=== PATIENT | female | born 1945 | race Caucasian/White ===

== ENCOUNTER → 2016-05-15 | Outpatient (CLI) | payer MEDICARE, BC ==
[~2016-05-15] MED LIST: LISINOPRIL10 MG PO; MIRAPEX 0.125MG PO; TRAVATAN Z 5 ML5 ML OD; VANCO 1 GR1 GM/250 M IV; XALATAN EYE DROPS OU
== END ==
LOC: MAMMO 12:54
DX: Z12.31 Encounter for screening mammogram for malignant neoplasm of breast (principal); Z00.00 Encounter for general adult medical examination without abnormal findings
CPT/HCPCS: G0202

== ENCOUNTER 2016-06-28 13:15 | Outpatient (RCR) | payer MEDICARE, BC ==
[~2016-06-28 13:15] MED LIST changes: -MIRAPEX 0.125MG PO; -VANCO 1 GR1 GM/250 M IV; -XALATAN EYE DROPS OU
[2016-06-28 13:54] VITALS: BP 130/74
[2016-06-28] MEDS ORDERED: MIRAPEX 0.125MG PO (13:57)
[2016-06-28 16:50] VITALS: BP 144/70
--- NOTE | 2016-06-28 16:50 | NUR ---
Pt's right arm noted with redness from shoulder to wrist. Marked areas of edges that redness with normal skin tones near shoulder. Most of upper and lower arm noted with redness. Measured mid upper arm at 36 cm and marked line for reassessment. Measured at mid forearm at 31 cm and marked line for reassessment.
[2016-06-28 21:09] VITALS: BP 138/71
[2016-06-28] MEDS ORDERED: VANCO 1 GR1 GM/250 M IV (21:22)
--- NOTE | 2016-06-28 21:27 | NUR ---
PT AMBULATED TO ROOM 101. LOWER RT ARM CIRCUMFERENCE IS 32.5 CM AT JUVENCIO AND UPPER ARM CIRCUMFERENCE IS 37 CM AT JUVENCIO. PT STATES SHE BELIEVES THE LOWER PART IF THE ARM IS LESS RED BUT THE UPPER ARM IS THE SAME IT WAS EARLIER TODAY. REDNESS EDGES REMAIN AT THE MARKED OUTLINE.
[2016-06-28 22:17] VITALS: BP 122/61
[2016-06-29 06:06] VITALS: BP 132/62
[2016-06-29 07:33] VITALS: BP 122/71
[2016-06-29 18:20] VITALS: BP 123/73
--- NOTE | 2016-06-29 18:50 | NUR ---
Lower right arm circumference measures 30.5 cm at saranya and upper arm circumference measures 37 cm at saranya.
[2016-06-29 19:30] VITALS: BP 115/70
[2016-06-30 07:05] VITALS: BP 129/74
--- NOTE | 2016-06-30 08:00 | NUR ---
UPPER RT ARM CIRCUMFERENCE 37.4CM. RT FOREARM CIRCUMFERENCE 31.5CM.
[2016-06-30 08:34] VITALS: BP 130/87
[2016-06-30 19:00] VITALS: BP 136/78
--- NOTE | 2016-06-30 20:30 | NUR ---
Lower right arm circumference measures 30.5 cm at saranya and upper arm circumference measures 36.8 cm at saranya.
[2016-06-30 20:48] VITALS: BP 140/83
[2016-07-01 07:33] VITALS: BP 118/78
[2016-07-01 09:26] VITALS: BP 131/83
--- NOTE | 2016-07-01 09:27 | NUR ---
lower arem measures 30.2, upper 36.5
[2016-07-01 19:05] VITALS: BP 132/73
[2016-07-01 20:52] VITALS: BP 149/85
[2016-07-02 07:29] VITALS: BP 134/72
[2016-07-02 09:03] VITALS: BP 147/83
[2016-07-02 19:28] VITALS: BP 146/90
[2016-07-02 19:55] VITALS: BP 149/89
--- NOTE | 2016-07-02 19:55 | NUR ---
Patient alert and oriented. Sitting up in the recliner. INT to left ac flushes without difficulty. Area surrounding IV insertion site is firm. No redness or drainage noted. Patient reports that the entire area is "sore." Discussed with patient the benefits and risks of proceeding with the IV antibiotic infusion. Patient states that she would like to receive tonights dose of the IV antibiotic, then d/c the INT tonight. IV antibiotic started per patient request. Patient denies pain or burning at side. Remained at the bedside while infusion started. After approximately 17ml of IV vancomycin was infused, patient jumped, became wide eyed, and stopped speaking mid sentence, then states "I think maybe we better stop this." Infusion was stopped immediately. Patient reports an "odd feeling" throughout her body. Unable to describe "odd feeling" in detail. Asked patient if she was having pain or burning at IV site, patient states "maybe a little bit." Patient states "maybe it's ok, maybe I'm just having anxiety." No redness or drainage noted at IV insertion site. Assessment of IV site is unchanged. INT to left ac discontinued. Catheter tip intact. Patient states that she feels much better with the IV out. Message left on the phone of Vimal Tiwari APRN per orders. Patient ambulatory out of facility to [facility] without incident.
[2016-07-15] MEDS ORDERED: XALATAN EYE DROPS OU (05:15)
== END 2016-07-02 21:00 | disposition home or self-care (01) ==
LOC: AMSURD 13:15 → EDSTATUS 19:57 → AMSURD 07-02 21:00
DX: L03.113 Cellulitis of right upper limb (principal)
CPT/HCPCS: J3370; J7030; J7050

== ENCOUNTER → 2016-06-28 | Outpatient (CLI) | payer MEDICARE, BC | LOC: LAB 11:35 | DX: L03.113 Cellulitis of right upper limb (principal) ==

== ENCOUNTER → 2016-06-29 | Outpatient (CLI) | payer MEDICARE, BC ==
[~2016-06-29] MED LIST changes: +MIRAPEX 0.125MG PO; +VANCO 1 GR1 GM/250 M IV; +XALATAN EYE DROPS OU
== END ==
LOC: LAB 06:03
DX: L03.111 Cellulitis of right axilla (principal)

== ENCOUNTER → 2016-07-01 | Outpatient (CLI) | payer MEDICARE, BC | LOC: LAB 07:05 | DX: L03.113 Cellulitis of right upper limb (principal) ==

== ENCOUNTER → 2016-07-02 | Outpatient (CLI) | payer MEDICARE, BC | LOC: LAB 07:08 | DX: L03.113 Cellulitis of right upper limb (principal); I89.0 Lymphedema, not elsewhere classified ==

== ENCOUNTER 2016-07-15 05:45 | Emergency (ER) | payer MEDICARE, BC | END 2016-07-15 07:31 | disposition home or self-care (01) | LOC: ED 05:45 | DX: I89.0 Lymphedema, not elsewhere classified (principal); R21 Rash and other nonspecific skin eruption ==

== ENCOUNTER → 2016-07-17 | Outpatient (CLI) | payer MEDICARE, BC | LOC: LAB 07:52 | DX: I89.0 Lymphedema, not elsewhere classified (principal) ==

== ENCOUNTER → 2016-08-02 | Outpatient (CLI) | payer MEDICARE, BC | LOC: CARDREHAB 09:53 | DX: R68.89 Other general symptoms and signs (principal); R06.02 Shortness of breath; I10 Essential (primary) hypertension | CPT/HCPCS: A9500 ==

== ENCOUNTER → 2016-08-26 | Outpatient (CLI) | payer MEDICARE, BC ==
[2016-07-15 05:16] VITALS: BP 140/88
== END ==
LOC: LAB 13:35
DX: M79.1 Myalgia (principal); R53.81 Other malaise; R06.02 Shortness of breath

== ENCOUNTER → 2017-03-14 | Outpatient (CLI) | payer MEDICARE, BC ==
[2016-07-15 05:16] VITALS: BP 140/88
[2017-03-14 08:35] LABS: EOS # 0.2 (0.04-0.40); EOS % 3.3 % (1.0-5.0); HEMATOCRIT 43.6 % (37.0-47.0); HEMOGLOBIN 14.3 g/dL (12.5-16.0); LYMPH# 1.3 (1.50-4.00); MEAN CELL VOLUME 93 fl (78-100); MEAN CORPUSCULAR HEMOGLOBIN 31 pg (27-31); MEAN CORPUSCULAR HGB CONC 33 g/dL (33-37); MEAN PLATELET VOLUME 9.4 fl (7.4-10.4); MONO # 0.8 (0.20-0.80); NEU # 4.3 (1.40-6.50); PLATELET COUNT 268 K/mm3 (130-400); RED BLOOD COUNT 4.68 M/mm3 (4.10-5.30); RED CELL DISTRIBUTION WIDTH 12.7 % (11.5-14.5); WHITE BLOOD COUNT 6.7 K/mm3 (4.8-10.8)
[2017-03-14 08:48] LABS: ALBUMIN 4.2 g/dL (3.5-5.0); BUN/CREATININE RATIO 33.9 (6.0-26.0); CALCIUM 9.3 mg/dL (8.4-10.2); POTASSIUM 3.7 mmol/L (3.6-5.0); TOTAL BILIRUBIN 0.9 mg/dL (0.2-1.3); TOTAL PROTEIN 7.1 g/dL (6.3-8.2)
[2017-03-14 09:36] LABS: ERYTHROCYTE SEDIMENTATION RATE 8 mm/hr (0-30)
[2017-03-14 12:03] LABS: URINE APPEARANCE CLOUDY; URINE COLOR YELLOW; URINE PROTEIN(semi-quant) TRACE mg/dL (NEGATIVE)
[2017-03-14 12:04] LABS: URINE BILIRUBIN NEGATIVE (NEGATIVE); URINE BLOOD NEGATIVE (NEGATIVE); URINE GLUCOSE NEGATIVE (NEGATIVE); URINE KETONE NEGATIVE (NEGATIVE); URINE LEUKOCYTE ESTERASE TRACE (NEGATIVE); URINE NITRATE NEGATIVE (NEGATIVE); URINE UROBILINOGEN NORMAL (NORMAL); URINE WBC >50 /hpf (0-3)
[2017-03-15 07:52] LABS: C-REACTIVE PROTEIN XXX
== END ==
LOC: LAB 08:16
PROVIDERS: Nurse Practitioner Family
DX: R52 Pain, unspecified (principal); I10 Essential (primary) hypertension; R10.9 Unspecified abdominal pain; R53.81 Other malaise

== ENCOUNTER → 2017-03-17 | Outpatient (CLI) | payer MEDICARE, BC ==
[2016-07-15 05:16] VITALS: BP 140/88
== END ==
LOC: RAD 09:14
DX: R10.9 Unspecified abdominal pain (principal); R53.81 Other malaise; K80.20 Calculus of gallbladder without cholecystitis without obstruction; N64.89 Other specified disorders of breast; Z85.3 Personal history of malignant neoplasm of breast
CPT/HCPCS: Q9967

== ENCOUNTER → 2017-06-02 | Outpatient (CLI) | payer MEDICARE, BC ==
[2016-07-15 05:16] VITALS: BP 140/88
== END ==
LOC: LAB 10:21
DX: E03.4 Atrophy of thyroid (acquired) (principal)

== ENCOUNTER → 2017-06-03 | Outpatient (CLI) | payer MEDICARE, BC ==
[2016-07-15 05:16] VITALS: BP 140/88
== END ==
LOC: MAMMO 11:18
DX: Z12.31 Encounter for screening mammogram for malignant neoplasm of breast (principal); N63.10 Unspecified lump in the right breast, unspecified quadrant

== ENCOUNTER → 2017-06-09 | Outpatient (CLI) | payer MEDICARE, BC ==
[2016-07-15 05:16] VITALS: BP 140/88
== END ==
LOC: MAMMO 07:05
DX: N63.14 Unspecified lump in the right breast, lower inner quadrant (principal); Z85.3 Personal history of malignant neoplasm of breast; Z92.3 Personal history of irradiation

== ENCOUNTER 2017-06-22 06:28 | Emergency (ER) | payer MEDICARE, BC ==
[~2017-06-22] VITALS: Ht 157.5 cm; Wt 68.2 kg
[2017-06-22] MEDS ORDERED: ZESTORETIC 10-1 EACH PO (06:55)
[2017-06-22] MEDS ORDERED: LEVO-T100 MCG PO (06:56)
[2017-06-22 08:29] LABS: EOS # 0.2 (0.04-0.40); EOS % 2.1 % (1.0-5.0); HEMATOCRIT 44.8 % (37.0-47.0); HEMOGLOBIN 14.5 g/dL (12.5-16.0); LYMPH# 1.3 (1.50-4.00); MEAN CELL VOLUME 94 fl (78-100); MEAN CORPUSCULAR HEMOGLOBIN 30 pg (27-31); MEAN CORPUSCULAR HGB CONC 32 g/dL (33-37); MEAN PLATELET VOLUME 9.6 fl (7.4-10.4); MONO # 0.7 (0.20-0.80); NEU # 4.8 (1.40-6.50); PLATELET COUNT 279 K/mm3 (130-400); RED BLOOD COUNT 4.77 M/mm3 (4.10-5.30); RED CELL DISTRIBUTION WIDTH 12.9 % (11.5-14.5)
[2017-06-22 09:17] VITALS: BP 130/85
[2017-06-22 09:26] LABS: ERYTHROCYTE SEDIMENTATION RATE 5 mm/hr (0-30)
== END 2017-06-22 09:14 | disposition home or self-care (01) ==
LOC: ED 06:28
PROVIDERS: Family Medicine
DX: I89.0 Lymphedema, not elsewhere classified (principal); I10 Essential (primary) hypertension; C50.911 Malignant neoplasm of unspecified site of right female breast

== ENCOUNTER → 2017-06-26 | Outpatient (CLI) | payer MEDICARE, BC ==
[2017-06-22 09:17] VITALS: BP 130/85
[~2017-06-26] MED LIST changes: +LEVO-T100 MCG PO; +ZESTORETIC 10-1 EACH PO
== END ==
LOC: RAD 14:35
DX: I99.9 Unspecified disorder of circulatory system (principal); Z53.8 Procedure and treatment not carried out for other reasons

== ENCOUNTER → 2017-09-17 | Outpatient (CLI) | payer MEDICARE, BC ==
[2017-09-17 13:29] LABS: HEMATOCRIT 39.7 % (37.0-47.0); HEMOGLOBIN 13.2 g/dL (12.5-16.0); MEAN CELL VOLUME 93 fl (78-100); MEAN CORPUSCULAR HEMOGLOBIN 31 pg (27-31); MEAN CORPUSCULAR HGB CONC 33 g/dL (33-37); MEAN PLATELET VOLUME 10.3 fl (7.4-10.4); PLATELET COUNT 258 K/mm3 (130-400); RED BLOOD COUNT 4.28 M/mm3 (4.10-5.30); RED CELL DISTRIBUTION WIDTH 13.1 % (11.5-14.5)
[2017-09-17 13:43] LABS: ALBUMIN 3.9 g/dL (3.5-5.0); BUN/CREATININE RATIO 44.9 (6.0-26.0); CALCIUM 8.5 mg/dL (8.4-10.2); POTASSIUM 3.8 mmol/L (3.6-5.0); TOTAL BILIRUBIN 0.6 mg/dL (0.2-1.3); TOTAL PROTEIN 6.8 g/dL (6.3-8.2)
[2017-09-17 14:23] LABS: WHITE BLOOD COUNT 62.9 K/mm3 (4.8-10.8)
[2017-09-17 14:24] LABS: LYMPHOCYTE 9 % (20-51); MONOCYTE 2 % (3-10); NEUTROPHILS 89 % (42-75)
== END ==
LOC: LAB 13:13
PROVIDERS: Internal Medicine
DX: C50.919 Malignant neoplasm of unspecified site of unspecified female breast (principal)

== ENCOUNTER → 2017-09-24 | Outpatient (CLI) | payer MEDICARE, BC ==
[2017-09-24 14:44] LABS: HEMATOCRIT 37.5 % (37.0-47.0); HEMOGLOBIN 12.2 g/dL (12.5-16.0); MEAN CELL VOLUME 93 fl (78-100); MEAN CORPUSCULAR HEMOGLOBIN 30 pg (27-31); MEAN CORPUSCULAR HGB CONC 33 g/dL (33-37); MEAN PLATELET VOLUME 10.1 fl (7.4-10.4); PLATELET COUNT 222 K/mm3 (130-400); RED BLOOD COUNT 4.05 M/mm3 (4.10-5.30); RED CELL DISTRIBUTION WIDTH 13.3 % (11.5-14.5)
[2017-09-24 15:18] LABS: ALBUMIN 3.4 g/dL (3.5-5.0); BUN/CREATININE RATIO 21.8 (6.0-26.0); CALCIUM 8.8 mg/dL (8.4-10.2); TOTAL BILIRUBIN 0.2 mg/dL (0.2-1.3); TOTAL PROTEIN 6.3 g/dL (6.3-8.2)
[2017-09-24 15:30] LABS: WHITE BLOOD COUNT 55.2 K/mm3 (4.8-10.8)
[2017-09-24 15:33] LABS: LYMPHOCYTE 13 % (20-51); MONOCYTE 8 % (3-10); NEUTROPHILS 78 % (42-75)
== END ==
LOC: LAB 14:04
PROVIDERS: Internal Medicine
DX: C50.919 Malignant neoplasm of unspecified site of unspecified female breast (principal)

== ENCOUNTER → 2017-10-01 | Outpatient (CLI) | payer MEDICARE, BC ==
[2017-10-01 13:48] LABS: HEMATOCRIT 35.2 % (37.0-47.0); HEMOGLOBIN 11.3 g/dL (12.5-16.0); MEAN CELL VOLUME 95 fl (78-100); MEAN CORPUSCULAR HEMOGLOBIN 31 pg (27-31); MEAN CORPUSCULAR HGB CONC 32 g/dL (33-37); MEAN PLATELET VOLUME 9.3 fl (7.4-10.4); PLATELET COUNT 246 K/mm3 (130-400); RED CELL DISTRIBUTION WIDTH 13.9 % (11.5-14.5); WHITE BLOOD COUNT 19.5 K/mm3 (4.8-10.8)
[2017-10-01 13:58] LABS: LYMPHOCYTE 15 % (20-51); MONOCYTE 8 % (3-10); NEUTROPHILS 75 % (42-75)
[2017-10-01 14:00] LABS: ALBUMIN 3.6 g/dL (3.5-5.0); BUN/CREATININE RATIO 25.5 (6.0-26.0); CALCIUM 8.8 mg/dL (8.4-10.2); POTASSIUM 4.5 mmol/L (3.6-5.0); TOTAL BILIRUBIN 0.2 mg/dL (0.2-1.3); TOTAL PROTEIN 6.3 g/dL (6.3-8.2)
== END ==
LOC: LAB 13:33
PROVIDERS: Internal Medicine
DX: C50.919 Malignant neoplasm of unspecified site of unspecified female breast (principal)

== ENCOUNTER → 2017-10-15 | Outpatient (CLI) | payer MEDICARE, BC ==
[2017-10-15 11:55] LABS: MEAN CELL VOLUME 97 fl (78-100); MEAN CORPUSCULAR HEMOGLOBIN 31 pg (27-31); MEAN CORPUSCULAR HGB CONC 32 g/dL (33-37); MEAN PLATELET VOLUME 9.9 fl (7.4-10.4); PLATELET COUNT 305 K/mm3 (130-400); RED BLOOD COUNT 3.52 M/mm3 (4.10-5.30); RED CELL DISTRIBUTION WIDTH 15.7 % (11.5-14.5)
[2017-10-15 12:21] LABS: ALBUMIN 3.7 g/dL (3.5-5.0); BUN/CREATININE RATIO 17.3 (6.0-26.0); CALCIUM 8.8 mg/dL (8.4-10.2); POTASSIUM 3.9 mmol/L (3.6-5.0); TOTAL BILIRUBIN 0.2 mg/dL (0.2-1.3); TOTAL PROTEIN 6.4 g/dL (6.3-8.2)
[2017-10-15 12:57] LABS: LYMPHOCYTE 20 % (20-51); MONOCYTE 9 % (3-10); NEUTROPHILS 70 % (42-75)
== END ==
LOC: LAB 11:28
PROVIDERS: Internal Medicine
DX: C50.919 Malignant neoplasm of unspecified site of unspecified female breast (principal)

== ENCOUNTER → 2017-10-22 | Outpatient (CLI) | payer MEDICARE, BC ==
[2017-10-22 11:26] LABS: HEMATOCRIT 33.7 % (37.0-47.0); HEMOGLOBIN 10.6 g/dL (12.5-16.0); MEAN CELL VOLUME 98 fl (78-100); MEAN CORPUSCULAR HEMOGLOBIN 31 pg (27-31); MEAN CORPUSCULAR HGB CONC 32 g/dL (33-37); PLATELET COUNT 212 K/mm3 (130-400); RED BLOOD COUNT 3.44 M/mm3 (4.10-5.30); RED CELL DISTRIBUTION WIDTH 16.2 % (11.5-14.5); WHITE BLOOD COUNT 13.2 K/mm3 (4.8-10.8)
[2017-10-22 11:32] LABS: ALBUMIN 3.5 g/dL (3.5-5.0); BUN/CREATININE RATIO 25.2 (6.0-26.0); CALCIUM 8.3 mg/dL (8.4-10.2); POTASSIUM 4.1 mmol/L (3.6-5.0); TOTAL BILIRUBIN 0.3 mg/dL (0.2-1.3)
[2017-10-22 11:48] LABS: BAND 1 % (0-10); LYMPHOCYTE 13 % (20-51); MONOCYTE 11 % (3-10); NEUTROPHILS 74 % (42-75)
== END ==
LOC: LAB 11:05
PROVIDERS: Internal Medicine
DX: C50.919 Malignant neoplasm of unspecified site of unspecified female breast (principal)

== ENCOUNTER → 2017-11-05 | Outpatient (CLI) | payer MEDICARE, BC ==
[2017-11-05 14:59] LABS: HEMATOCRIT 30.8 % (37.0-47.0); HEMOGLOBIN 9.7 g/dL (12.5-16.0); MEAN CELL VOLUME 100 fl (78-100); MEAN CORPUSCULAR HEMOGLOBIN 32 pg (27-31); MEAN CORPUSCULAR HGB CONC 32 g/dL (33-37); PLATELET COUNT 262 K/mm3 (130-400); RED BLOOD COUNT 3.08 M/mm3 (4.10-5.30); RED CELL DISTRIBUTION WIDTH 17.2 % (11.5-14.5)
[2017-11-05 15:00] LABS: ALBUMIN 3.3 g/dL (3.5-5.0); BUN/CREATININE RATIO 19.2 (6.0-26.0); CALCIUM 8.3 mg/dL (8.4-10.2); POTASSIUM 3.7 mmol/L (3.6-5.0); TOTAL BILIRUBIN 0.2 mg/dL (0.2-1.3)
[2017-11-05 15:51] LABS: WHITE BLOOD COUNT 38.3 K/mm3 (4.8-10.8)
[2017-11-05 15:57] LABS: LYMPHOCYTE 14 % (20-51); MONOCYTE 9 % (3-10); NEUTROPHILS 76 % (42-75)
== END ==
LOC: LAB 14:20
PROVIDERS: Internal Medicine
DX: C50.919 Malignant neoplasm of unspecified site of unspecified female breast (principal)

== ENCOUNTER → 2017-11-12 | Outpatient (CLI) | payer MEDICARE, BC ==
[2017-11-12 14:55] LABS: HEMATOCRIT 32.9 % (37.0-47.0); HEMOGLOBIN 10.3 g/dL (12.5-16.0); MEAN CELL VOLUME 99 fl (78-100); MEAN CORPUSCULAR HEMOGLOBIN 31 pg (27-31); MEAN CORPUSCULAR HGB CONC 31 g/dL (33-37); MEAN PLATELET VOLUME 9.3 fl (7.4-10.4); PLATELET COUNT 324 K/mm3 (130-400); RED BLOOD COUNT 3.31 M/mm3 (4.10-5.30); RED CELL DISTRIBUTION WIDTH 17.1 % (11.5-14.5); WHITE BLOOD COUNT 9.8 K/mm3 (4.8-10.8)
[2017-11-12 15:57] LABS: ALBUMIN 3.4 g/dL (3.5-5.0); BUN/CREATININE RATIO 17.2 (6.0-26.0); CALCIUM 8.3 mg/dL (8.4-10.2); POTASSIUM 3.6 mmol/L (3.6-5.0); TOTAL BILIRUBIN 0.3 mg/dL (0.2-1.3); TOTAL PROTEIN 6.5 g/dL (6.3-8.2)
[2017-11-12 23:57] LABS: BAND 7 % (0-10); LYMPHOCYTE 10 % (20-51); MONOCYTE 6 % (3-10); NEUTROPHILS 76 % (42-75); POLYCHROMASIA 1+
== END ==
LOC: LAB 14:22
PROVIDERS: Internal Medicine
DX: C50.919 Malignant neoplasm of unspecified site of unspecified female breast (principal)

== ENCOUNTER → 2017-11-26 | Outpatient (CLI) | payer MEDICARE, BC ==
[2017-11-26 14:43] LABS: ALBUMIN 3.7 g/dL (3.5-5.0); BUN/CREATININE RATIO 25.8 (6.0-26.0); CALCIUM 9.1 mg/dL (8.4-10.2); TOTAL BILIRUBIN 0.2 mg/dL (0.2-1.3); TOTAL PROTEIN 6.5 g/dL (6.3-8.2)
[2017-11-26 14:57] LABS: HEMATOCRIT 33.5 % (37.0-47.0); HEMOGLOBIN 10.4 g/dL (12.5-16.0); MEAN CELL VOLUME 99 fl (78-100); MEAN CORPUSCULAR HEMOGLOBIN 31 pg (27-31); MEAN CORPUSCULAR HGB CONC 31 g/dL (33-37); PLATELET COUNT 314 K/mm3 (130-400); RED BLOOD COUNT 3.39 M/mm3 (4.10-5.30); RED CELL DISTRIBUTION WIDTH 17.2 % (11.5-14.5)
[2017-11-26 15:32] LABS: LYMPHOCYTE 16 % (20-51); MONOCYTE 8 % (3-10); NEUTROPHILS 76 % (42-75)
== END ==
LOC: LAB 14:15
PROVIDERS: Internal Medicine
DX: C50.919 Malignant neoplasm of unspecified site of unspecified female breast (principal)

== ENCOUNTER → 2017-12-03 | Outpatient (CLI) | payer MEDICARE, BC ==
[2017-12-03 14:48] LABS: HEMATOCRIT 31.5 % (37.0-47.0); HEMOGLOBIN 9.8 g/dL (12.5-16.0); MEAN CELL VOLUME 98 fl (78-100); MEAN CORPUSCULAR HEMOGLOBIN 31 pg (27-31); MEAN CORPUSCULAR HGB CONC 31 g/dL (33-37); MEAN PLATELET VOLUME 9.3 fl (7.4-10.4); PLATELET COUNT 334 K/mm3 (130-400); RED BLOOD COUNT 3.21 M/mm3 (4.10-5.30); RED CELL DISTRIBUTION WIDTH 17.3 % (11.5-14.5); WHITE BLOOD COUNT 11.6 K/mm3 (4.8-10.8)
[2017-12-03 14:50] LABS: ALBUMIN 3.3 g/dL (3.5-5.0); BAND 2 % (0-10); BUN/CREATININE RATIO 24.9 (6.0-26.0); CALCIUM 8.3 mg/dL (8.4-10.2); LYMPHOCYTE 8 % (20-51); MONOCYTE 8 % (3-10); NEUTROPHILS 80 % (42-75); OVALOCYTES 1+; POLYCHROMASIA 1+; POTASSIUM 3.6 mmol/L (3.6-5.0); TOTAL BILIRUBIN 0.3 mg/dL (0.2-1.3); TOTAL PROTEIN 5.9 g/dL (6.3-8.2)
== END ==
LOC: LAB 14:21
PROVIDERS: Internal Medicine
DX: C50.919 Malignant neoplasm of unspecified site of unspecified female breast (principal)

== ENCOUNTER → 2017-12-11 | Outpatient (CLI) | payer MEDICARE, BC ==
[2017-12-11 10:07] LABS: HEMATOCRIT 34.3 % (37.0-47.0); HEMOGLOBIN 10.5 g/dL (12.5-16.0); MEAN CELL VOLUME 99 fl (78-100); MEAN CORPUSCULAR HEMOGLOBIN 30 pg (27-31); MEAN CORPUSCULAR HGB CONC 31 g/dL (33-37); MEAN PLATELET VOLUME 8.2 fl (7.4-10.4); PLATELET COUNT 485 K/mm3 (130-400); RED BLOOD COUNT 3.46 M/mm3 (4.10-5.30); RED CELL DISTRIBUTION WIDTH 17.1 % (11.5-14.5); WHITE BLOOD COUNT 6.5 K/mm3 (4.8-10.8)
[2017-12-11 10:31] LABS: ALBUMIN 3.4 g/dL (3.5-5.0); BUN/CREATININE RATIO 27.8 (6.0-26.0); CALCIUM 8.7 mg/dL (8.4-10.2); POTASSIUM 3.8 mmol/L (3.6-5.0); TOTAL BILIRUBIN 0.4 mg/dL (0.2-1.3); TOTAL PROTEIN 6.1 g/dL (6.3-8.2)
[2017-12-11 10:34] LABS: LYMPHOCYTE 12 % (20-51); MONOCYTE 13 % (3-10); NEUTROPHILS 68 % (42-75)
[2017-12-11 10:35] LABS: OVALOCYTES 1+
== END ==
LOC: LAB 09:50
PROVIDERS: Internal Medicine
DX: C50.919 Malignant neoplasm of unspecified site of unspecified female breast (principal)

== ENCOUNTER → 2017-12-25 | Outpatient (CLI) | payer MEDICARE, BC ==
[2017-12-25 14:18] LABS: HEMATOCRIT 35.1 % (37.0-47.0); HEMOGLOBIN 10.9 g/dL (12.5-16.0); MEAN CELL VOLUME 98 fl (78-100); MEAN CORPUSCULAR HEMOGLOBIN 30 pg (27-31); MEAN CORPUSCULAR HGB CONC 31 g/dL (33-37); PLATELET COUNT 191 K/mm3 (130-400); RED BLOOD COUNT 3.58 M/mm3 (4.10-5.30); RED CELL DISTRIBUTION WIDTH 16.3 % (11.5-14.5)
[2017-12-25 15:59] LABS: WHITE BLOOD COUNT 36.2 K/mm3 (4.8-10.8)
[2017-12-25 16:03] LABS: BAND 2 % (0-10); LYMPHOCYTE 4 % (20-51); NEUTROPHILS 88 % (42-75)
[2017-12-25 16:04] LABS: MONOCYTE 5 % (3-10)
[2017-12-25 17:35] LABS: ALBUMIN 3.5 g/dL (3.5-5.0); CALCIUM 8.9 mg/dL (8.4-10.2); POTASSIUM 4.1 mmol/L (3.6-5.0); TOTAL BILIRUBIN 0.2 mg/dL (0.2-1.3)
== END ==
LOC: LAB 13:57
PROVIDERS: Internal Medicine
DX: C50.919 Malignant neoplasm of unspecified site of unspecified female breast (principal)

== ENCOUNTER → 2017-12-31 | Outpatient (CLI) | payer MEDICARE, BC ==
[2017-12-31 14:13] LABS: HEMATOCRIT 35.6 % (37.0-47.0); MEAN CELL VOLUME 98 fl (78-100); MEAN CORPUSCULAR HEMOGLOBIN 30 pg (27-31); MEAN CORPUSCULAR HGB CONC 31 g/dL (33-37); PLATELET COUNT 228 K/mm3 (130-400); RED BLOOD COUNT 3.65 M/mm3 (4.10-5.30); RED CELL DISTRIBUTION WIDTH 16.2 % (11.5-14.5); WHITE BLOOD COUNT 9.9 K/mm3 (4.8-10.8)
[2017-12-31 14:24] LABS: ALBUMIN 3.6 g/dL (3.5-5.0); CALCIUM 8.7 mg/dL (8.4-10.2); POTASSIUM 4.1 mmol/L (3.6-5.0); TOTAL BILIRUBIN 0.2 mg/dL (0.2-1.3); TOTAL PROTEIN 5.7 g/dL (6.3-8.2)
[2017-12-31 16:52] LABS: NEUTROPHILS 75 % (42-75)
[2017-12-31 16:53] LABS: LYMPHOCYTE 12 % (20-51); MONOCYTE 11 % (3-10)
== END ==
LOC: LAB 13:42
PROVIDERS: Internal Medicine
DX: C50.911 Malignant neoplasm of unspecified site of right female breast (principal)

== ENCOUNTER → 2018-01-14 | Outpatient (CLI) | payer MEDICARE, BC ==
[2018-01-14 15:17] LABS: HEMATOCRIT 34.2 % (37.0-47.0); HEMOGLOBIN 10.8 g/dL (12.5-16.0); MEAN CELL VOLUME 98 fl (78-100); MEAN CORPUSCULAR HEMOGLOBIN 31 pg (27-31); MEAN CORPUSCULAR HGB CONC 32 g/dL (33-37); MEAN PLATELET VOLUME 10.2 fl (7.4-10.4); PLATELET COUNT 199 K/mm3 (130-400); RED CELL DISTRIBUTION WIDTH 16.7 % (11.5-14.5)
[2018-01-14 23:03] LABS: WHITE BLOOD COUNT 39.9 K/mm3 (4.8-10.8)
[2018-01-14 23:05] LABS: NEUTROPHILS 79 % (42-75)
[2018-01-14 23:06] LABS: LYMPHOCYTE 10 % (20-51); MONOCYTE 9 % (3-10)
== END ==
LOC: LAB 14:52
PROVIDERS: Internal Medicine
DX: C50.911 Malignant neoplasm of unspecified site of right female breast (principal)

== ENCOUNTER → 2018-01-21 | Outpatient (CLI) | payer MEDICARE, BC ==
[2018-01-21 11:56] LABS: HEMATOCRIT 35.7 % (37.0-47.0); MEAN CELL VOLUME 98 fl (78-100); MEAN CORPUSCULAR HEMOGLOBIN 30 pg (27-31); MEAN CORPUSCULAR HGB CONC 31 g/dL (33-37); MEAN PLATELET VOLUME 9.5 fl (7.4-10.4); PLATELET COUNT 226 K/mm3 (130-400); RED BLOOD COUNT 3.65 M/mm3 (4.10-5.30); RED CELL DISTRIBUTION WIDTH 16.8 % (11.5-14.5); WHITE BLOOD COUNT 10.4 K/mm3 (4.8-10.8)
[2018-01-21 12:25] LABS: BAND 81 % (0-10); LYMPHOCYTE 10 % (20-51); NEUTROPHILS 9 % (42-75)
== END ==
LOC: LAB 11:41
PROVIDERS: Internal Medicine
DX: C50.911 Malignant neoplasm of unspecified site of right female breast (principal)

== ENCOUNTER 2018-01-25 07:43 | Emergency (ER) | payer MEDICARE, BC ==
[~2018-01-25] VITALS: Ht 154.9 cm; Wt 63.6 kg
[2018-01-25] MEDS ORDERED: ESCITALOPRAM10 MG PO (07:55)
[2018-01-25 08:30] LABS: HEMATOCRIT 32.9 % (37.0-47.0); HEMOGLOBIN 10.5 g/dL (12.5-16.0); MEAN CELL VOLUME 97 fl (78-100); MEAN CORPUSCULAR HEMOGLOBIN 31 pg (27-31); MEAN CORPUSCULAR HGB CONC 32 g/dL (33-37); MEAN PLATELET VOLUME 9.6 fl (7.4-10.4); PLATELET COUNT 299 K/mm3 (130-400); RED BLOOD COUNT 3.41 M/mm3 (4.10-5.30); WHITE BLOOD COUNT 5.2 K/mm3 (4.8-10.8)
[2018-01-25 08:47] LABS: LYMPHOCYTE 18 % (20-51); MONOCYTE 10 % (3-10); NEUTROPHILS 70 % (42-75)
[2018-01-25 09:30] LABS: ERYTHROCYTE SEDIMENTATION RATE 12 mm/hr (0-30)
[2018-01-25 09:48] VITALS: BP 122/75
== END 2018-01-25 09:44 | disposition home or self-care (01) ==
LOC: ED 07:43
PROVIDERS: Family Medicine
DX: I89.0 Lymphedema, not elsewhere classified (principal); R53.81 Other malaise; C50.911 Malignant neoplasm of unspecified site of right female breast; Z90.11 Acquired absence of right breast and nipple; Z79.899 Other long term (current) drug therapy; E03.9 Hypothyroidism, unspecified

== ENCOUNTER 2018-02-03 08:00 | Emergency (ER) | payer MEDICARE, BC ==
[~2018-02-03 08:00] MED LIST changes: +ESCITALOPRAM10 MG PO
[2018-02-03 09:02] LABS: HEMATOCRIT 37.3 % (37.0-47.0); HEMOGLOBIN 11.6 g/dL (12.5-16.0); MEAN CELL VOLUME 97 fl (78-100); MEAN CORPUSCULAR HEMOGLOBIN 30 pg (27-31); MEAN CORPUSCULAR HGB CONC 31 g/dL (33-37); MEAN PLATELET VOLUME 9.3 fl (7.4-10.4); PLATELET COUNT 295 K/mm3 (130-400); RED BLOOD COUNT 3.85 M/mm3 (4.10-5.30); RED CELL DISTRIBUTION WIDTH 16.6 % (11.5-14.5); WHITE BLOOD COUNT 5.1 K/mm3 (4.8-10.8)
[2018-02-03 09:05] LABS: ALBUMIN 3.8 g/dL (3.5-5.0); CALCIUM 8.9 mg/dL (8.4-10.2); POTASSIUM 3.7 mmol/L (3.6-5.0); TOTAL BILIRUBIN 0.3 mg/dL (0.2-1.3); TOTAL PROTEIN 5.9 g/dL (6.3-8.2)
[2018-02-03 09:29] LABS: LYMPHOCYTE 21 % (20-51); MONOCYTE 11 % (3-10); NEUTROPHILS 61 % (42-75)
[2018-02-03] MEDS ORDERED: METOPROLOL SUCC25 M1 PO (10:41)
[2018-02-03 10:51] VITALS: BP 158/84
== END 2018-02-03 10:50 | disposition home or self-care (01) ==
LOC: ED 08:00
PROVIDERS: Nurse Practitioner Primary Care
DX: I10 Essential (primary) hypertension (principal); I89.0 Lymphedema, not elsewhere classified; Z79.899 Other long term (current) drug therapy; Z85.3 Personal history of malignant neoplasm of breast; Z90.11 Acquired absence of right breast and nipple; E07.9 Disorder of thyroid, unspecified

== ENCOUNTER → 2018-02-20 | Outpatient (CLI) | payer MEDICARE, BC ==
[2018-02-03 10:51] VITALS: BP 158/84
[~2018-02-20] MED LIST changes: +METOPROLOL SUCC25 M1 PO
[2018-02-20 12:39] LABS: EOS # 0.3 (0.04-0.40); HEMATOCRIT 39.6 % (37.0-47.0); HEMOGLOBIN 12.4 g/dL (12.5-16.0); MEAN CELL VOLUME 96 fl (78-100); MEAN CORPUSCULAR HEMOGLOBIN 30 pg (27-31); MEAN CORPUSCULAR HGB CONC 31 g/dL (33-37); MEAN PLATELET VOLUME 10.1 fl (7.4-10.4); MONO # 0.8 (0.20-0.80); PLATELET COUNT 219 K/mm3 (130-400); RED BLOOD COUNT 4.12 M/mm3 (4.10-5.30); RED CELL DISTRIBUTION WIDTH 15.8 % (11.5-14.5); WHITE BLOOD COUNT 7.2 K/mm3 (4.8-10.8)
[2018-02-20 12:51] LABS: ALBUMIN 4.1 g/dL (3.5-5.0); CALCIUM 9.1 mg/dL (8.4-10.2); POTASSIUM 4.5 mmol/L (3.6-5.0); TOTAL BILIRUBIN 0.6 mg/dL (0.2-1.3); TOTAL PROTEIN 6.5 g/dL (6.3-8.2)
== END ==
LOC: LAB 12:07
PROVIDERS: Family Medicine
DX: I10 Essential (primary) hypertension (principal)

== ENCOUNTER → 2018-05-01 | Outpatient (CLI) | payer MEDICARE, BC ==
[2018-05-01 14:17] LABS: HEMATOCRIT 40.6 % (37.0-47.0); HEMOGLOBIN 13.1 g/dL (12.5-16.0); MEAN CELL VOLUME 94 fl (78-100); MEAN CORPUSCULAR HEMOGLOBIN 30 pg (27-31); MEAN CORPUSCULAR HGB CONC 32 g/dL (33-37); MEAN PLATELET VOLUME 9.9 fl (7.4-10.4); PLATELET COUNT 235 K/mm3 (130-400); RED BLOOD COUNT 4.32 M/mm3 (4.10-5.30); RED CELL DISTRIBUTION WIDTH 13.2 % (11.5-14.5); WHITE BLOOD COUNT 5.7 K/mm3 (4.8-10.8)
[2018-05-01 14:25] LABS: ALBUMIN 3.9 g/dL (3.5-5.0); CALCIUM 9.2 mg/dL (8.4-10.2); POTASSIUM 4.3 mmol/L (3.6-5.0); TOTAL BILIRUBIN 0.4 mg/dL (0.2-1.3); TOTAL PROTEIN 6.2 g/dL (6.3-8.2)
[2018-05-01 14:31] LABS: LYMPHOCYTE 19 % (20-51); MONOCYTE 10 % (3-10); NEUTROPHILS 63 % (42-75)
== END ==
LOC: LAB 13:50
PROVIDERS: Internal Medicine
DX: C50.919 Malignant neoplasm of unspecified site of unspecified female breast (principal)

== ENCOUNTER → 2018-06-03 | Outpatient (CLI) | payer MEDICARE, BC | LOC: MAMMO 09:06 | DX: Z12.31 Encounter for screening mammogram for malignant neoplasm of breast (principal); Z85.3 Personal history of malignant neoplasm of breast; Z90.11 Acquired absence of right breast and nipple ==

== ENCOUNTER → 2018-06-24 | Outpatient (CLI) | payer MEDICARE, BC | LOC: RAD 13:00 | DX: M85.88 Other specified disorders of bone density and structure, other site (principal); M81.0 Age-related osteoporosis without current pathological fracture ==

== ENCOUNTER → 2018-08-05 | Outpatient (CLI) | payer MEDICARE, BC ==
[2018-08-05 13:31] LABS: ALBUMIN 4.1 g/dL (3.5-5.0); CALCIUM 9.3 mg/dL (8.4-10.2); POTASSIUM 4.3 mmol/L (3.6-5.0); TOTAL BILIRUBIN 0.6 mg/dL (0.2-1.3); TOTAL PROTEIN 6.7 g/dL (6.3-8.2)
== END ==
LOC: LAB 12:53
PROVIDERS: Internal Medicine
DX: Z12.31 Encounter for screening mammogram for malignant neoplasm of breast (principal); Z90.11 Acquired absence of right breast and nipple

== ENCOUNTER → 2018-10-15 | Outpatient (CLI) | payer MEDICARE, BC | LOC: LAB 10:04 | DX: M79.89 Other specified soft tissue disorders (principal); Z87.2 Personal history of diseases of the skin and subcutaneous tissue ==

== ENCOUNTER → 2018-10-30 | Outpatient (CLI) | payer MEDICARE, BC ==
[2018-10-30 16:14] LABS: EOS # 0.2 (0.04-0.40); EOS % 3.6 % (1.0-5.0); HEMOGLOBIN 13.7 g/dL (12.5-16.0); LYMPH# 1.3 (1.50-4.00); MEAN CELL VOLUME 96 fl (78-100); MEAN CORPUSCULAR HEMOGLOBIN 31 pg (27-31); MEAN CORPUSCULAR HGB CONC 33 g/dL (33-37); MEAN PLATELET VOLUME 9.8 fl (7.4-10.4); MONO # 0.7 (0.20-0.80); NEU # 3.9 (1.40-6.50); PLATELET COUNT 213 K/mm3 (130-400); RED BLOOD COUNT 4.36 M/mm3 (4.10-5.30); WHITE BLOOD COUNT 6.1 K/mm3 (4.8-10.8)
[2018-10-30 16:28] LABS: CALCIUM 9.4 mg/dL (8.3-10.5)
[2018-10-30 16:29] LABS: TOTAL PROTEIN 6.6 g/dL (6.2-8.1)
[2018-10-30 16:31] LABS: TOTAL BILIRUBIN 0.3 mg/dL (0.2-1.2)
== END ==
LOC: LAB 15:57
PROVIDERS: Internal Medicine
DX: C50.311 Malignant neoplasm of lower-inner quadrant of right female breast (principal)

== ENCOUNTER → 2019-01-27 | Outpatient (CLI) | payer MEDICARE, BC ==
[2019-01-27 15:39] LABS: URINE APPEARANCE CLEAR; URINE BILIRUBIN NEGATIVE (NEGATIVE); URINE COLOR YELLOW; URINE GLUCOSE NEGATIVE (NEGATIVE); URINE KETONE NEGATIVE (NEGATIVE); URINE NITRATE NEGATIVE (NEGATIVE); URINE PROTEIN(semi-quant) NEGATIVE (NEGATIVE)
[2019-01-27 15:40] LABS: URINE BLOOD NEGATIVE (NEGATIVE); URINE LEUKOCYTE ESTERASE 1+ (NEGATIVE); URINE MUCUS PRESENT (NOT PRESENT); URINE UROBILINOGEN NORMAL (NORMAL)
== END ==
LOC: LAB 12:32
PROVIDERS: Family Medicine
DX: R30.0 Dysuria (principal)

== ENCOUNTER → 2019-03-10 | Outpatient (CLI) | payer MEDICARE, BC ==
[2019-03-10 15:44] LABS: EOS # 0.3 (0.04-0.40); HEMATOCRIT 41.3 % (37.0-47.0); HEMOGLOBIN 13.5 g/dL (12.5-16.0); LYMPH# 1.7 (1.50-4.00); MEAN CELL VOLUME 95 fl (78-100); MEAN CORPUSCULAR HEMOGLOBIN 31 pg (27-31); MEAN CORPUSCULAR HGB CONC 33 g/dL (33-37); MEAN PLATELET VOLUME 9.3 fl (7.4-10.4); MONO # 0.7 (0.20-0.80); NEU # 3.7 (1.40-6.50); PLATELET COUNT 230 K/mm3 (130-400); RED BLOOD COUNT 4.36 M/mm3 (4.10-5.30); RED CELL DISTRIBUTION WIDTH 12.8 % (11.5-14.5); WHITE BLOOD COUNT 6.5 K/mm3 (4.8-10.8)
[2019-03-10 15:55] LABS: ALBUMIN 3.9 g/dL (3.4-4.8)
[2019-03-10 15:56] LABS: CALCIUM 9.6 mg/dL (8.3-10.5)
[2019-03-10 15:58] LABS: TOTAL PROTEIN 6.4 g/dL (6.2-8.1)
[2019-03-10 15:59] LABS: TOTAL BILIRUBIN 0.3 mg/dL (0.2-1.2)
== END ==
LOC: LAB 15:26
PROVIDERS: Internal Medicine
DX: C50.311 Malignant neoplasm of lower-inner quadrant of right female breast (principal)

== ENCOUNTER → 2019-06-11 | Outpatient (CLI) | payer MEDICARE, BC | LOC: MAMMO 06-08 08:30 | DX: Z12.31 Encounter for screening mammogram for malignant neoplasm of breast (principal) ==

== ENCOUNTER → 2019-07-07 | Outpatient (CLI) | payer MEDICARE, BC ==
[2019-07-07 15:12] LABS: POTASSIUM 3.8 mmol/L (3.5-5.1)
[2019-07-07 15:13] LABS: CALCIUM 9.2 mg/dL (8.3-10.5)
[2019-07-07 15:14] LABS: TOTAL PROTEIN 5.9 g/dL (6.2-8.1)
[2019-07-07 15:16] LABS: TOTAL BILIRUBIN 0.2 mg/dL (0.2-1.2)
== END ==
LOC: LAB 14:43
PROVIDERS: Internal Medicine
DX: C50.311 Malignant neoplasm of lower-inner quadrant of right female breast (principal)

== ENCOUNTER 2019-09-19 14:02 | Emergency (ER) | payer MEDICARE, BC ==
[2019-09-19] MEDS ORDERED: METOPROLOL SUCC50 M1 PO (14:24)
[2019-09-19] MEDS ORDERED: NEURONTIN100 M1 PO (14:25)
[2019-09-19] MEDS ORDERED: ROPINIROLE HYD0.5 MG PO (14:25)
[2019-09-19] MEDS ORDERED: CYMBALTA30 M1 PO (14:26)
[2019-09-19] MEDS ORDERED: AMITRIPTYLINE H25 M2 PO (14:29)
[2019-09-19] MEDS ORDERED: ARIMIDEX1 MG PO (14:31)
[2019-09-19 15:49] LABS: HEMATOCRIT 39.8 % (37.0-47.0); HEMOGLOBIN 13.2 g/dL (12.5-16.0); MEAN CELL VOLUME 93 fl (78-100); MEAN CORPUSCULAR HEMOGLOBIN 31 pg (27-31); MEAN CORPUSCULAR HGB CONC 33 g/dL (33-37); MEAN PLATELET VOLUME 9.8 fl (7.4-10.4); PLATELET COUNT 210 K/mm3 (130-400); RED BLOOD COUNT 4.26 M/mm3 (4.10-5.30); RED CELL DISTRIBUTION WIDTH 12.9 % (11.5-14.5); WHITE BLOOD COUNT 12.6 K/mm3 (4.8-10.8)
[2019-09-19 16:09] LABS: ALBUMIN 4.1 g/dL (3.4-4.8)
[2019-09-19 16:10] LABS: POTASSIUM 4.4 mmol/L (3.5-5.1)
[2019-09-19 16:12] LABS: TOTAL PROTEIN 6.6 g/dL (6.2-8.1)
[2019-09-19 16:14] LABS: TOTAL BILIRUBIN 0.5 mg/dL (0.2-1.2)
[2019-09-19 16:19] LABS: BAND 5 % (0-10); LYMPHOCYTE 4 % (20-51); MONOCYTE 4 % (3-10); NEUTROPHILS 87 % (42-75)
[2019-09-19 18:00] LABS: URINE APPEARANCE CLEAR; URINE BILIRUBIN NEGATIVE (NEGATIVE); URINE BLOOD NEGATIVE (NEGATIVE); URINE COLOR YELLOW; URINE GLUCOSE NEGATIVE (NEGATIVE); URINE KETONE 2+ (NEGATIVE); URINE LEUKOCYTE ESTERASE NEGATIVE (NEGATIVE); URINE NITRATE NEGATIVE (NEGATIVE); URINE PROTEIN(semi-quant) NEGATIVE (NEGATIVE); URINE UROBILINOGEN NORMAL (NORMAL)
[2019-09-19 18:50] VITALS: BP 152/82
== END 2019-09-19 18:50 | disposition home or self-care (01) ==
LOC: ED 14:02
PROVIDERS: Family Medicine
DX: S06.0X9A Concussion with loss of consciousness of unspecified duration, initial encounter (principal); S30.1XXA Contusion of abdominal wall, initial encounter; S20.212A Contusion of left front wall of thorax, initial encounter; S90.112A Contusion of left great toe without damage to nail, initial encounter; R41.3 Other amnesia; Z85.3 Personal history of malignant neoplasm of breast; W19.XXXA Unspecified fall, initial encounter; Y92.009 Unspecified place in unspecified non-institutional (private) residence as the place of occurrence of the external cause

== ENCOUNTER → 2019-11-02 | Outpatient (CLI) | payer MEDICARE, BC ==
[~2019-11-02] MED LIST changes: +AMITRIPTYLINE H25 M2 PO; +ARIMIDEX1 MG PO; +CYMBALTA30 M1 PO; +METOPROLOL SUCC50 M1 PO; +NEURONTIN100 M1 PO; +ROPINIROLE HYD0.5 MG PO
[2019-11-02 13:56] LABS: EOS % 3.4 % (1.0-5.0); HEMATOCRIT 41.4 % (37.0-47.0); HEMOGLOBIN 13.1 g/dL (12.5-16.0); LYMPH# 1.5 (1.50-4.00); MEAN CELL VOLUME 98 fl (78-100); MEAN CORPUSCULAR HEMOGLOBIN 31 pg (27-31); MEAN CORPUSCULAR HGB CONC 32 g/dL (33-37); MEAN PLATELET VOLUME 9.1 fl (7.4-10.4); NEU # 5.2 (1.40-6.50); PLATELET COUNT 262 K/mm3 (130-400); RED BLOOD COUNT 4.23 M/mm3 (4.10-5.30); RED CELL DISTRIBUTION WIDTH 13.2 % (11.5-14.5); WHITE BLOOD COUNT 7.9 K/mm3 (4.8-10.8)
[2019-11-02 13:57] LABS: EOS # 0.3 (0.04-0.40); MONO # 0.8 (0.20-0.80)
[2019-11-02 14:24] LABS: ALBUMIN 4.1 g/dL (3.4-4.8)
[2019-11-02 14:25] LABS: POTASSIUM 4.6 mmol/L (3.5-5.1)
[2019-11-02 14:26] LABS: CALCIUM 9.3 mg/dL (8.3-10.5)
[2019-11-02 14:27] LABS: TOTAL PROTEIN 7.2 g/dL (6.2-8.1)
[2019-11-02 14:29] LABS: TOTAL BILIRUBIN 0.4 mg/dL (0.2-1.2)
== END ==
LOC: LAB 13:44
PROVIDERS: Family Medicine
DX: I10 Essential (primary) hypertension (principal); E03.4 Atrophy of thyroid (acquired)

== ENCOUNTER → 2020-05-26 | Outpatient (CLI) | payer MEDICARE, BC ==
[2020-05-26 15:37] LABS: EOS # 0.1 (0.04-0.40); EOS % 1.6 % (1.0-5.0); HEMATOCRIT 46.1 % (37.0-47.0); HEMOGLOBIN 14.9 g/dL (12.5-16.0); LYMPH# 1.5 (1.50-4.00); MEAN CELL VOLUME 95 fl (78-100); MEAN CORPUSCULAR HEMOGLOBIN 31 pg (27-31); MEAN CORPUSCULAR HGB CONC 32 g/dL (33-37); MEAN PLATELET VOLUME 9.5 fl (7.4-10.4); MONO # 0.6 (0.20-0.80); NEU # 3.8 (1.40-6.50); PLATELET COUNT 229 K/mm3 (130-400); RED BLOOD COUNT 4.87 M/mm3 (4.10-5.30); WHITE BLOOD COUNT 6.1 K/mm3 (4.8-10.8)
[2020-05-26 15:57] LABS: ALBUMIN 4.3 g/dL (3.4-4.8); POTASSIUM 4.4 mmol/L (3.5-5.1)
[2020-05-26 16:01] LABS: TOTAL BILIRUBIN 0.3 mg/dL (0.2-1.2)
== END ==
LOC: LAB 15:06
PROVIDERS: Family Medicine
DX: C50.919 Malignant neoplasm of unspecified site of unspecified female breast (principal); M51.37 Other intervertebral disc degeneration, lumbosacral region; E03.4 Atrophy of thyroid (acquired); I10 Essential (primary) hypertension

== ENCOUNTER → 2020-06-01 | Outpatient (CLI) | payer MEDICARE, OTHER | LOC: RAD 18:09 | DX: M51.36 Other intervertebral disc degeneration, lumbar region (principal); M47.816 Spondylosis without myelopathy or radiculopathy, lumbar region ==

== ENCOUNTER 2020-06-15 11:19 | Outpatient (RCR) | payer MEDICARE, OTHER | END 2020-06-21 17:00 | disposition home or self-care (01) | LOC: PT 11:19 | DX: M54.5 Low back pain (principal) ==

== ENCOUNTER → 2020-06-20 | Outpatient (CLI) | payer MEDICARE, OTHER | LOC: MAMMO 10:45 | DX: Z12.31 Encounter for screening mammogram for malignant neoplasm of breast (principal); Z80.3 Family history of malignant neoplasm of breast ==

== ENCOUNTER → 2020-06-20 | Outpatient (CLI) | payer MEDICARE, OTHER | LOC: RAD 10:48 → MAMMO 11:30 | DX: Z12.31 Encounter for screening mammogram for malignant neoplasm of breast (principal); M81.0 Age-related osteoporosis without current pathological fracture; M51.36 Other intervertebral disc degeneration, lumbar region ==

== ENCOUNTER → 2020-11-08 | Outpatient (CLI) | payer MEDICARE, OTHER ==
[2020-11-08 13:13] LABS: ALBUMIN 4.2 g/dL (3.4-4.8); POTASSIUM 4.3 mmol/L (3.5-5.1)
[2020-11-08 13:14] LABS: CALCIUM 9.1 mg/dL (8.3-10.5)
[2020-11-08 13:16] LABS: TOTAL PROTEIN 7.1 g/dL (6.2-8.1)
[2020-11-08 13:17] LABS: TOTAL BILIRUBIN 0.8 mg/dL (0.2-1.2)
== END ==
LOC: LAB 12:38
PROVIDERS: Family Medicine
DX: Z00.01 Encounter for general adult medical examination with abnormal findings (principal); Z13.6 Encounter for screening for cardiovascular disorders

== ENCOUNTER → 2020-11-20 | Day surgery (SDC) | payer MEDICARE, OTHER | END | disposition home or self-care (01) | LOC: MSO 09:08 | DX: Z12.11 Encounter for screening for malignant neoplasm of colon (principal); Z86.010 Personal history of colon polyps; K57.30 Diverticulosis of large intestine without perforation or abscess without bleeding; E03.9 Hypothyroidism, unspecified; C50.911 Malignant neoplasm of unspecified site of right female breast; I10 Essential (primary) hypertension; G25.81 Restless legs syndrome; F43.21 Adjustment disorder with depressed mood; F32.9 Major depressive disorder, single episode, unspecified; H40.9 Unspecified glaucoma; Z86.718 Personal history of other venous thrombosis and embolism; Z79.899 Other long term (current) drug therapy; Z79.811 Long term (current) use of aromatase inhibitors; Z79.890 Hormone replacement therapy | CPT/HCPCS: 00812; J2704; J7120 ==

== ENCOUNTER 2020-11-29 14:58 | Emergency (ER) | payer MEDICARE, OTHER ==
[2020-11-29 17:36] VITALS: BP 130/96
== END 2020-11-29 17:32 | disposition home or self-care (01) ==
LOC: ED 14:58
DX: S02.32XA Fracture of orbital floor, left side, initial encounter for closed fracture (principal); S02.2XXA Fracture of nasal bones, initial encounter for closed fracture; E03.9 Hypothyroidism, unspecified; Z79.890 Hormone replacement therapy; W01.198A Fall on same level from slipping, tripping and stumbling with subsequent striking against other object, initial encounter; Y93.K1 Activity, walking an animal

== ENCOUNTER → 2021-03-21 | Outpatient (CLI) | payer MEDICARE, OTHER | LOC: LAB 11:38 | DX: E03.4 Atrophy of thyroid (acquired) (principal) ==

== ENCOUNTER 2021-05-02 11:01 | Outpatient (RCR) | payer MEDICARE, OTHER | END 2021-05-28 | disposition home or self-care (01) | LOC: PT | DX: M62.81 Muscle weakness (generalized) (principal) ==

== ENCOUNTER → 2021-05-16 | Outpatient (CLI) | payer MEDICARE, OTHER ==
[2021-05-16 15:34] LABS: BASO # 0.04 K/mm3 (0.02-0.10); EOS # 0.14 K/mm3 (0.04-0.40); EOS % 2.3 % (1.0-5.0); HEMATOCRIT 45.7 % (37.0-47.0); HEMOGLOBIN 14.8 g/dL (12.5-16.0); LYMPH# 1.37 K/mm3 (1.50-4.00); MEAN CELL VOLUME 94 fl (78-100); MEAN CORPUSCULAR HEMOGLOBIN 31 pg (27-31); MEAN CORPUSCULAR HGB CONC 32 g/dL (33-37); MEAN PLATELET VOLUME 9.6 fl (7.4-10.4); MONO # 0.59 K/mm3 (0.20-0.80); NEU # 3.89 K/mm3 (1.40-6.50); PLATELET COUNT 230 K/mm3 (130-400); RED BLOOD COUNT 4.85 M/mm3 (4.10-5.30); RED CELL DISTRIBUTION WIDTH 12.6 % (11.5-14.5)
[2021-05-16 15:45] LABS: ALBUMIN 3.9 g/dL (3.4-4.8); POTASSIUM 4.1 mmol/L (3.5-5.1)
[2021-05-16 15:47] LABS: CALCIUM 9.3 mg/dL (8.3-10.5)
[2021-05-16 15:48] LABS: TOTAL PROTEIN 6.5 g/dL (6.2-8.1)
[2021-05-16 15:50] LABS: TOTAL BILIRUBIN 0.4 mg/dL (0.2-1.2)
== END ==
LOC: LAB 15:23
PROVIDERS: Internal Medicine
DX: Z01.89 Encounter for other specified special examinations (principal)

== ENCOUNTER 2021-06-01 11:00 | Outpatient (RCR) | payer MEDICARE, OTHER | END 2021-06-25 | disposition home or self-care (01) | LOC: PT | DX: M62.81 Muscle weakness (generalized) (principal) ==

== ENCOUNTER → 2021-06-05 | Outpatient (CLI) | payer MEDICARE, OTHER ==
[2021-06-05 12:03] LABS: BASO # 0.05 K/mm3 (0.02-0.10); EOS # 0.25 K/mm3 (0.04-0.40); EOS % 3.7 % (1.0-5.0); HEMATOCRIT 45.3 % (37.0-47.0); LYMPH# 1.13 K/mm3 (1.50-4.00); MEAN CELL VOLUME 93 fl (78-100); MEAN CORPUSCULAR HEMOGLOBIN 31 pg (27-31); MEAN CORPUSCULAR HGB CONC 33 g/dL (33-37); MEAN PLATELET VOLUME 9.4 fl (7.4-10.4); MONO # 0.67 K/mm3 (0.20-0.80); NEU # 4.71 K/mm3 (1.40-6.50); PLATELET COUNT 229 K/mm3 (130-400); RED BLOOD COUNT 4.88 M/mm3 (4.10-5.30); RED CELL DISTRIBUTION WIDTH 12.5 % (11.5-14.5); WHITE BLOOD COUNT 6.8 K/mm3 (4.8-10.8)
[2021-06-05 12:22] LABS: POTASSIUM 4.6 mmol/L (3.5-5.1)
[2021-06-05 12:23] LABS: CALCIUM 9.3 mg/dL (8.3-10.5)
[2021-06-05 12:25] LABS: TOTAL PROTEIN 6.6 g/dL (6.2-8.1)
[2021-06-05 12:27] LABS: TOTAL BILIRUBIN 0.3 mg/dL (0.2-1.2)
== END ==
LOC: LAB 11:21
PROVIDERS: Family Medicine
DX: Z00.01 Encounter for general adult medical examination with abnormal findings (principal); C50.919 Malignant neoplasm of unspecified site of unspecified female breast; E78.5 Hyperlipidemia, unspecified; M62.81 Muscle weakness (generalized); F41.8 Other specified anxiety disorders; E03.4 Atrophy of thyroid (acquired); I10 Essential (primary) hypertension; G89.29 Other chronic pain; K57.90 Diverticulosis of intestine, part unspecified, without perforation or abscess without bleeding; M81.0 Age-related osteoporosis without current pathological fracture; G64 Other disorders of peripheral nervous system; F32.9 Major depressive disorder, single episode, unspecified; Z86.718 Personal history of other venous thrombosis and embolism

== ENCOUNTER → 2021-06-20 | Outpatient (CLI) | payer MEDICARE, OTHER | LOC: MAMMO 09:15 | DX: Z12.31 Encounter for screening mammogram for malignant neoplasm of breast (principal); Z85.3 Personal history of malignant neoplasm of breast; Z90.11 Acquired absence of right breast and nipple ==

== ENCOUNTER → 2021-07-25 | Outpatient (CLI) | payer MEDICARE, OTHER ==
[2021-07-25 11:25] LABS: HEMATOCRIT 47.1 % (37.0-47.0); HEMOGLOBIN 15.6 g/dL (12.5-16.0); MEAN PLATELET VOLUME 9.6 fl (7.4-10.4); RED BLOOD COUNT 5.04 M/mm3 (4.10-5.30); RED CELL DISTRIBUTION WIDTH 12.9 % (11.5-14.5); WHITE BLOOD COUNT 6.8 K/mm3 (4.8-10.8)
[2021-07-25 11:29] LABS: ALBUMIN 4.1 g/dL (3.4-4.8)
[2021-07-25 11:30] LABS: POTASSIUM 4.3 mmol/L (3.5-5.1); SODIUM 140 mmol/L (136-145)
[2021-07-25 11:31] LABS: CALCIUM 9.6 mg/dL (8.3-10.5)
[2021-07-25 11:32] LABS: GLUCOSE 134 mg/dL (65-105); TOTAL PROTEIN 6.8 g/dL (6.2-8.1)
[2021-07-25 11:33] LABS: CARBON DIOXIDE 21 mmol/L (23-31)
[2021-07-25 11:34] LABS: TOTAL BILIRUBIN 0.8 mg/dL (0.2-1.2)
[2021-07-25 11:37] LABS: AST-SGOT 21 U/L (5-34)
[2021-07-25 11:38] LABS: ALT/SGPT 18 U/L (0-55)
[2021-07-25 21:48] LABS: FOLATE (FOLIC ACID) 15.8 ng/mL (2.0-20.0)
[2021-07-31 07:56] LABS: VITAMIN B1 105 nmol/L (70-180)
== END ==
LOC: LAB 10:38
PROVIDERS: Nurse Practitioner
DX: R41.3 Other amnesia (principal); M85.80 Other specified disorders of bone density and structure, unspecified site

== ENCOUNTER 2021-12-18 11:03 | Outpatient (RCR) | payer MEDICARE, OTHER | END 2021-12-26 | disposition home or self-care (01) | LOC: SPEECH | DX: R41.3 Other amnesia (principal) ==

== ENCOUNTER → 2022-01-09 | Outpatient (CLI) | payer MEDICARE, OTHER ==
[2022-01-09 13:34] LABS: BASO # 0.03 K/mm3 (0.02-0.10); EOS # 0.21 K/mm3 (0.04-0.40); EOS % 3.3 % (1.0-5.0); HEMATOCRIT 44.3 % (37.0-47.0); HEMOGLOBIN 14.3 g/dL (12.5-16.0); MEAN CELL VOLUME 96 fl (78-100); MEAN CORPUSCULAR HEMOGLOBIN 31 pg (27-31); MEAN CORPUSCULAR HGB CONC 32 g/dL (33-37); MEAN PLATELET VOLUME 9.1 fl (7.4-10.4); MONO # 0.59 K/mm3 (0.20-0.80); NEU # 4.32 K/mm3 (1.40-6.50); PLATELET COUNT 214 K/mm3 (130-400); RED CELL DISTRIBUTION WIDTH 12.8 % (11.5-14.5); WHITE BLOOD COUNT 6.5 K/mm3 (4.8-10.8)
[2022-01-09 13:41] LABS: ALBUMIN 4.1 g/dL (3.4-4.8); POTASSIUM 4.3 mmol/L (3.5-5.1)
[2022-01-09 13:42] LABS: CALCIUM 9.2 mg/dL (8.3-10.5)
[2022-01-09 13:43] LABS: TOTAL PROTEIN 6.7 g/dL (6.2-8.1)
[2022-01-09 13:45] LABS: TOTAL BILIRUBIN 0.6 mg/dL (0.2-1.2)
== END ==
LOC: LAB 13:19
PROVIDERS: Internal Medicine
DX: C50.311 Malignant neoplasm of lower-inner quadrant of right female breast (principal)

== ENCOUNTER 2022-01-26 08:00 | Outpatient (RCR) | payer MEDICARE, OTHER | END 2022-02-25 | disposition home or self-care (01) | LOC: SPEECH | DX: R41.3 Other amnesia (principal) ==

== ENCOUNTER 2022-07-09 10:07 | Outpatient (RCR) | payer MEDICARE, OTHER | END 2022-07-26 | disposition home or self-care (01) | LOC: PT | DX: I89.0 Lymphedema, not elsewhere classified (principal) ==

== ENCOUNTER → 2022-07-16 | Outpatient (CLI) | payer MEDICARE, OTHER | LOC: RAD 11:44 | DX: M19.011 Primary osteoarthritis, right shoulder (principal); M47.812 Spondylosis without myelopathy or radiculopathy, cervical region; M43.13 Spondylolisthesis, cervicothoracic region; M43.14 Spondylolisthesis, thoracic region; C50.919 Malignant neoplasm of unspecified site of unspecified female breast; M81.0 Age-related osteoporosis without current pathological fracture ==

== ENCOUNTER → 2023-02-19 | Outpatient (CLI) | payer MEDICARE, OTHER ==
[2023-02-19 10:27] LABS: BASO # 0.02 K/mm3 (0.02-0.10); EOS # 0.12 K/mm3 (0.04-0.40); EOS % 1.4 % (1.0-5.0); HEMATOCRIT 47.6 % (37.0-47.0); HEMOGLOBIN 15.4 g/dL (12.5-16.0); MEAN CELL VOLUME 95 fl (78-100); MEAN CORPUSCULAR HEMOGLOBIN 31 pg (27-31); MEAN CORPUSCULAR HGB CONC 32 g/dL (33-37); MEAN PLATELET VOLUME 9.6 fl (7.4-10.4); MONO # 0.83 K/mm3 (0.20-0.80); NEU # 6.23 K/mm3 (1.40-6.50); PLATELET COUNT 188 K/mm3 (130-400); RED CELL DISTRIBUTION WIDTH 12.9 % (11.5-14.5); WHITE BLOOD COUNT 8.3 K/mm3 (4.8-10.8)
[2023-02-19 10:44] LABS: ALBUMIN 3.9 g/dL (3.4-4.8)
[2023-02-19 10:45] LABS: CALCIUM 10.7 mg/dL (8.3-10.5)
[2023-02-19 10:47] LABS: TOTAL PROTEIN 7.1 g/dL (6.2-8.1)
[2023-02-19 10:48] LABS: TOTAL BILIRUBIN 0.6 mg/dL (0.2-1.2)
== END ==
LOC: LAB 10:10
PROVIDERS: Physician Assistant
DX: L03.113 Cellulitis of right upper limb (principal)